=== PATIENT | male | born 1980 | race Two or more races ===

== ENCOUNTER → 2019-11-08 | Outpatient (CLI) | payer BC ==
[~2019-11-08] MED LIST: DULA0.75 SC; EMPA10TA PO; MULT-516 PO
[2019-11-08 15:08] LABS: MICROSCOPIC AUTO
[2019-11-08 15:09] LABS: BASOPHILS # (AUTO) 0.04 x10^3/uL (0-0.1); BASOPHILS % (AUTO) 1 % (0-1); EOSINOPHILS # (AUTO) 0.12 x10^3/uL (0-0.4); EOSINOPHILS % (AUTO) 2 % (1-7); LYMPHOCYTES % (AUTO) 27 % (22-44); MD NO; MEAN CORPUSCULAR HEMOGLOBIN 29.7 pg (27.5-34.5); MEAN CORPUSCULAR VOLUME 87.3 fL (81-97); MEAN PLATELET VOLUME 7.9 fL (7.4-10.4); MONOCYTES # (AUTO) 0.31 x10^3/uL (0.2-0.8); MONOCYTES % (AUTO) 5 % (2-9); NEUTROPHILS # (AUTO) 4.06 x10^3/uL (1.8-6.8); NEUTROPHILS % (AUTO) 65 % (42-75); PLATELET COUNT 227 x10^3/uL (130-400); RED BLOOD COUNT 5.85 x10^6/uL (4.38-5.82); RED CELL DISTRIBUTION WIDTH 13.6 % (9.4-14.8)
[2019-11-08 15:18] LABS: ALANINE AMINOTRANSFERASE 38 U/L (12-78); ALBUMIN 3.6 g/dL (3.4-5.0); ANION GAP 7 mmol/L (5-15); CALCIUM 8.7 mg/dL (8.5-10.1); CHLORIDE 109 mmol/L (98-107); CREATININE 1.32 mg/dL (0.7-1.3)
[2019-11-08 15:20] LABS: ALKALINE PHOSPHATASE 73 U/L (45-117); BILIRUBIN,TOTAL 1.1 mg/dL (0.2-1.0); TOTAL PROTEIN 7.3 g/dL (6.4-8.2)
[2019-11-08 15:56] LABS: INTERNATIONAL NORMALIZED RATIO 0.94 (0.93-1.1)
== END | disposition home or self-care (01) ==
LOC: STAR 13:55
PROVIDERS: ATTEND Urology
DX: Z01.818 Encounter for other preprocedural examination (principal); N13.30 Unspecified hydronephrosis
CPT/HCPCS: 36415; 80053; 81001; 85025; 85610; 85730; 87086; 93005

== ENCOUNTER 2019-11-14 09:30 | Inpatient (IN) | payer BC ==
[~2019-11-14] VITALS: Ht 182.9 cm; Wt 99.7 kg
[2019-11-14] MEDS ORDERED: LACTATED RINGERS 1,000 ML IV SCH (09:52)
[2019-11-14] MEDS ORDERED: CHLORHEXIDINE 15 ML UDC MM ONE (10:00)
[2019-11-14] MEDS ORDERED: FENTANYL PF 250 MCG/5ML ONE (11:45)
[2019-11-14] MEDS ORDERED: MIDAZOLAM 1 MG/ML, 2ML ONE (11:45)
[2019-11-14] MEDS ORDERED: BUPIVACAINE/PF-EPI 0.25% 1:200K ONE (11:51)
[2019-11-14] MEDS ORDERED: SUCCINYLCHOLINE 20 MG/ML, 10ML ONE (12:28)
[2019-11-14] MEDS ORDERED: PROPOFOL 10 MG/ML, 20ML ONE (12:28)
[2019-11-14] MEDS ORDERED: ONDANSETRON 2MG/ML, 2ML ONE (12:28)
[2019-11-14] MEDS ORDERED: ROCURONIUM 10 MG/ML,10ML ONE (12:28)
[2019-11-14] MEDS ORDERED: ONDANSETRON 2MG/ML, 2ML IVPush PRN (14:00)
[2019-11-14] MEDS ORDERED: ALBUTEROL SULFATE 2.5 MG/3 ML NPPB PRN (14:00)
[2019-11-14] MEDS ORDERED: FENTANYL PF 100 MCG/2ML IV PRN (14:00)
[2019-11-14] MEDS ORDERED: LABETALOL 5MG/ML, 20ML IV PRN (14:00)
[2019-11-14] MEDS ORDERED: MEPERIDINE/PF 25MG/0.5ML IVPush PRN (14:00)
[2019-11-14] MEDS ORDERED: hydrALAzine 20 MG/ML, 1ML IV PRN (14:00)
[2019-11-14] MEDS ORDERED: METOCLOPRAMIDE 5 MG/ML, 2ML IV PRN (14:00)
[2019-11-14] MEDS ORDERED: PROMETHAZINE 25 MG/ML, 1ML IV PRN (14:00)
[2019-11-14] MEDS ORDERED: DIAZEPAM 5 MG/ML, 2ML IV PRN ×2 (14:00)
[2019-11-14] MEDS ORDERED: KETOROLAC 30 MG/1 ML IV PRN (14:00)
[2019-11-14] MEDS ORDERED: OXYcodone 5 MG/5 ML ORAL.SOL UDC PO PRN (14:00)
[2019-11-14] MEDS ORDERED: FENTANYL PF 100 MCG/2ML ONE (17:09)
[2019-11-14] MEDS ORDERED: HYDROmorphone 1 MG/ML, 1ML INJ ONE (17:09)
[2019-11-14] MEDS: HYDROmorphone 1 MG/ML, 1ML INJ IV PRN ×3 (17:15→18:00)
[2019-11-14] MEDS ORDERED: morphine SULFATE 10 MG/ML, 1ML IV PRN (19:00)
[2019-11-14] MEDS ORDERED: OPIUM/BELLADONNA SUPP.RECT 16.2-30 MG PR PRN (19:00)
[2019-11-14] MEDS ORDERED: TEMAZEPAM 15 MG CAPSULE PO PRN (19:30)
[2019-11-14] MEDS ORDERED: ONDANSETRON 2MG/ML, 2ML IV PRN (19:30)
[2019-11-14] MEDS: SODIUM CHLORIDE 0.9% 1,000 ML IV SCH (19:35)
[2019-11-14] MEDS: KETOROLAC 30 MG/1 ML IV SCH (19:35)
[2019-11-14 20:00] VITALS: BP 143/88
[2019-11-14] MEDS: CEFAZOLIN PMX 1GM/50ML 50 ML IVPB SCH (20:28)
[2019-11-14] MEDS: HYDROcodone/APAP 5/325 TABLET PO PRN (23:09)
[2019-11-15 00:05] VITALS: BP 131/77
[2019-11-15] MEDS: KETOROLAC 30 MG/1 ML IV SCH ×3 (01:30→13:09)
[2019-11-15 04:22] VITALS: BP 114/71
[2019-11-15] MEDS: CEFAZOLIN PMX 1GM/50ML 50 ML IVPB SCH (04:32)
[2019-11-15] MEDS: HYDROcodone/APAP 5/325 TABLET PO PRN ×3 (04:32→13:49)
[2019-11-15 05:46] LABS: ANION GAP 8 mmol/L (5-15); CALCIUM 7.9 mg/dL (8.5-10.1); CHLORIDE 108 mmol/L (98-107)
[2019-11-15 05:48] LABS: CREATININE 1.52 mg/dL (0.7-1.3)
[2019-11-15 06:50] VITALS: BP 130/77
[2019-11-15] MEDS ORDERED: ENOXAPARIN 40 MG/0.4 ML SQ SCH (07:00)
[2019-11-15] MEDS: SODIUM CHLORIDE 0.9% 1,000 ML IV SCH (08:10)
[2019-11-15] MEDS ORDERED: EMPAGLIFLOZIN 10 MG HOMEMEDPO SCH (09:00)
[2019-11-15] MEDS ORDERED: MULTIVITAMIN 1 TABLET PO SCH (09:00)
[2019-11-15] MEDS ORDERED: DULAGLUTIDE 0.75 MG SQ SCH (09:00)
== END 2019-11-15 14:24 | disposition home or self-care (01) | DRG 661 ==
LOC: ORIP 09:30 → EDSTATUS 11:30 → 4NE 18:29
PROVIDERS: ADMIT Urology; ATTEND Urology
PROC: 0TB74ZZ Excision of Left Ureter, Percutaneous Endoscopic Approach (ICD-10-PCS; 2019-11-14)
PROC: 8E0W4CZ Robotic Assisted Procedure of Trunk Region, Percutaneous Endoscopic Approach (ICD-10-PCS; 2019-11-14)
PROC: 0TT14ZZ Resection of Left Kidney, Percutaneous Endoscopic Approach (ICD-10-PCS; principal; 2019-11-14 11:30)
DX: N13.30 Unspecified hydronephrosis (principal)
CPT/HCPCS: 36415; 80048; 82962; 85014; 85018; 86850; 86900; 88307; G0378; J0690; J1170; J1650; J1885; J2250; J2405; J2704; J3010; C1760; C1769; J0330; J2270; J7030; J7120